=== PATIENT | female | born 1990 | race Two or more races ===

== ENCOUNTER 2023-04-19 11:05 | Emergency (ER) | payer SELFPAY ==
[2023-04-19 11:36] VITALS: BP 126/91; PULSE 72; RESP 16; TEMP 98.1; BMI 30.1
[2023-04-19] MEDS: ACETAMINOPHEN 500 MG TABLET (FP) PO ONE (12:39)
[2023-04-19 12:49] LABS: BASO % 0.6 % (0-2.0); EOS % 2.2 % (0-4.5); HEMATOCRIT 44.1 % (32.4-45.2); LYMPH % 21.3 % (8-40); MCH 28.7 pg (25.7-33.7); MCHC 34.1 g/dl (32.0-36.0); MEAN CELL VOLUME 84.2 fl (80-96); MEAN PLT VOLUME 7.9 fl (7.5-11.1); MONO % 4.1 % (3.8-10.2); NEUT % 71.8 % (42.8-82.8); PLATELET COUNT 414 10^3/uL (134-434); RBC 5.24 M/mm3 (3.60-5.2); RDW 12.6 % (11.6-15.6)
[2023-04-19] MEDS ORDERED: ACETAMINOPHEN 325 MG TABLET (FP) ONE (13:00)
[2023-04-19 13:10] LABS: POTASSIUM 4.3 mmol/L (3.5-5.1)
[2023-04-19 13:12] LABS: ALBUMIN 4.1 g/dl (3.4-5.0); CALCIUM 10.1 mg/dL (8.5-10.1)
[2023-04-19 13:13] LABS: BLOOD UREA NITROGEN 12.9 mg/dL (7-18)
[2023-04-19 13:16] LABS: CREATININE 0.6 mg/dL (0.55-1.3)
[2023-04-19 13:17] LABS: BILIRUBIN,TOTAL 0.3 mg/dL (0.2-1); TOT PROT 8.5 g/dl (6.4-8.2)
[2023-04-19] MEDS: LACTATED RINGERS SOLUTION 1000 ML INFUS.BAG IV ONE (13:38)
== END 2023-04-19 16:26 | disposition home or self-care (01) ==
LOC: JER 11:05
DX: H02.843 Edema of right eye, unspecified eyelid (principal); R50.9 Fever, unspecified; H00.015 Hordeolum externum left lower eyelid; L03.213 Periorbital cellulitis
CPT/HCPCS: 36415; 70481-TC; 80053; 85025; 87040; 99285-25; Q9967